=== PATIENT | male | born 1960 | race Caucasian/White ===

== ENCOUNTER → 2018-01-24 | Day surgery (SDC) | payer BC ==
[~2018-01-24] MED LIST: ALLEGRA PO; ALLOPURINOL PO; BENICAR20 MG PO; DEXAMETHASONE SOD PHOS INJ 4 MG/ML VIAL ONE; FENTANYL CITRATE/PF 100MCG/2 ML INJ ONE; FISH OIL300 MG PO; LIDOCAINE HCL 2% LOCAL INJ 5 ML SDV VIAL INJ ONE; MIDAZOLAM HCL 2 MG/2 ML VIAL ONE; MULTI-VITAMIN1 EACH PO; OMEPRAZOLE40 MG PO; ONDANSETRON HCL INJ 2 MG/ML VIAL ONE; PROPOFOL IV EMULSION 10 MG/ML 20 ML VIAL ONE; SEVOFLURANE INHAL SOLN 250 ML PEN BTL ONE; Z.0.ALLOPURINOL300 M PO
--- OUTSIDE RECORDS SUMMARY | 2018-01-24 05:53 | XMS REPORT ---
[facility] Address Unknown Phone Unavailable Care Team Providers Care Balloon Artist Name Role Phone ANTONI CHAVIS Unavailable Unavailable Problems This patient has no known problems. Allergies, Adverse Reactions, Alerts This patient has no known allergies or adverse reactions. Medications This patient has no known medications. Results Test Description Test Time Test Comments Text Results Atomic Results Result Comments MRI FOOT LEFT WO [place] [id number] Patient Name: RAHEEL GONSALES MR #: [id number] : 1960 Age/Sex: 57/M Req #: [id number] Adm Physician: Ordered by: ANTONI CHAVIS MD Report #: [id number] Location: MRI Room/Bed: Procedure: [id number] MRI/MRI FOOT LEFT WO Exam Date: 08/06/17 Exam Time: 1100 REPORT STATUS: Signed TECHNIQUE: Magnetic resonance imaging of the left foot was performed WITHOUT injected contrast. HISTORY: Pain in the lateral side of the foot COMPARISON: None available. DISCUSSION: Bone marrow signal normal. No fracture or edema. No infiltrating lesion. 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 Remainder of the joints are unremarkable. The intermetatarsal spaces are clear. No neuroma or bursitis. 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 Signed by: Dr. Ck Mclaughlin M.D. on 08/08/2017 2:25 PM Dictated By: CK MCLAUGHLIN MD 142 Transcribed By: TENISHA on 08/08/17 142 COPY TO: ANTONI CHAVIS MD
--- NOTE | 2018-01-24 10:25 | Operative Report ---
DATE OF PROCEDURE: January 24, 2018 PROCEDURES PERFORMED: 1. Esophagogastroduodenoscopy with esophageal dilatation and biopsies and polypectomy. 2. Colonoscopy with polypectomy. REFERRING PHYSICIAN: Dr. Umer Diaz INDICATIONS FOR EGD: Dysphagia to solids, heartburn, indigestion. INDICATIONS FOR COLONOSCOPY: Colorectal cancer screening. MEDICATION: Patient was done under MAC. Please see anesthesiologist note. PROCEDURE IN DETAIL: With the patient in left lateral decubitus position, flexible fiberoptic Olympus gastroscope was introduced into the esophagus under direct visualization without any difficulty. Erosions were noted in the distal esophagus. The GE junction was somewhat stenotic and nodular, biopsies were obtained, and was dilated to size 52-Austrian Crawford. The scope was then advanced with ease into the stomach, mucosa overlying the antrum and the body revealed some patchy erythema and moderate edema, and biopsies were obtained and sent to stain for H. pylori. Two minute hyperplastic-appearing polyps were removed per the cold biopsy forceps. Pylorus appeared to be of normal contour and shape. It was intubated with ease and the scope was advanced all the way to the second portion of the duodenum. The scope was then withdrawn slowly. Mucosa overlying the proximal second portion and the duodenal bulb appeared to be within normal limits. The scope was then withdrawn back into the stomach and retroflexed, and the mucosa overlying the fundus and the cardia appeared to be within normal limits. The scope was then straightened out. It was subsequently withdrawn. Patient tolerated the procedure well. ASSESSMENT: 1. Distal esophagitis, erosive. 2. Gastroesophageal junction stenotic, nodular, biopsied and dilated to size 52-Austrian Crawford. 3. Gastritis, biopsied. Biopsy sent to stain for Helicobacter pylori. 4. Gastric polyps, body, minute, hyperplastic appearing, excised partially with the cold biopsy forceps. PLAN: Follow up histology. Increase omeprazole to 40 mg 1 p.o. a.c. b.i.d. Patient was then turned around. After adequate lubrication of the anal canal, flexible fiberoptic Olympus colonoscope was inserted into the rectum with ease and advanced all the way to the cecum. Mucosa overlying the cecum appeared to be within normal limits. One polyp was snared from the ileocecal valve. Some tissue from the cecum was inadvertently removed per snare electrocautery, and polypectomy site was hemoclipped x2 prophylactically. One polyp was hot biopsied from the ascending colon. Diverticular disease was noted, pretty much was scattered throughout, but more prominent in the distal descending and the sigmoid colon. One polyp was hot biopsied from the descending colon. One nodule was hot biopsied from the sigmoid colon approximately 25 cm from the anal verge suspicious for carcinoid. Two minute polyps were hot biopsied from the distal sigmoid colon. One polyp was hot biopsied from the rectum. The scope was then retroflexed into the distal rectum and small internal hemorrhoids were noted, none of which was actively bleeding. The scope was then straightened out. It was subsequently withdrawn. Patient tolerated the procedure well. IMPRESSION: 1. Ileocecal valve polyp, snared. Polypectomy site hemoclipped x2 prophylactically. 2. Ascending colon polyp, hot biopsied. 3. Diverticulosis. 4. Descending colon polyp, hot biopsied. 5. Sigmoid colon nodule, rule out carcinoid, at approximately 25 cm from the anal verge, hot biopsied. 6. Sigmoid colon polyps, distal sigmoid, x2, hot biopsied. 7. Rectal polyp, hot biopsied. 8. Internal hemorrhoids, none actively bleeding. PLAN: Follow up histology. Initiate high-fiber low-fat diet. Initiate high-fiber supplement. Timing of followup colonoscopy pending pathology report. Job#: [id number] cc:UMER DIAZ MD
== END | disposition home or self-care (01) ==
LOC: OR 05:51
PROVIDERS: ATTEND Internal Medicine Gastroenterology
DX: Z12.11 Encounter for screening for malignant neoplasm of colon (principal); D12.4 Benign neoplasm of descending colon; D12.0 Benign neoplasm of cecum; K62.1 Rectal polyp; K31.7 Polyp of stomach and duodenum; K29.70 Gastritis, unspecified, without bleeding; K22.10 Ulcer of esophagus without bleeding; K21.9 Gastro-esophageal reflux disease without esophagitis; K22.8 Other specified diseases of esophagus; K57.30 Diverticulosis of large intestine without perforation or abscess without bleeding; K64.8 Other hemorrhoids; I10 Essential (primary) hypertension; Z01.810 Encounter for preprocedural cardiovascular examination; Z68.27 Body mass index [BMI] 27.0-27.9, adult
CPT/HCPCS: 43239; 43450; 45384; 45385; 93005; J1100; J2001; J2250; J2405; 45378

== ENCOUNTER → 2020-07-09 | Day surgery (SDC) | payer BC ==
[2020-07-06 11:41] LABS: BASOPHILS # (AUTO) 0.1 (0.0-0.1); BASOPHILS % 0.8 % (0.0-1.0); EOSINOPHILS # (AUTO) 0.3 (0.0-0.4); HEMATOCRIT 51.7 % (38.2-49.6); HEMOGLOBIN 16.7 g/dL (14.0-18.0); LYMPHOCYTES # (AUTO) 1.4 (1.0-3.2); LYMPHOCYTES % 14.6 % (18.0-39.1); MEAN CORPUSCULAR HEMOGLOBIN 28.7 pg (28-32); MEAN CORPUSCULAR HGB CONC 32.3 g/dL (31-35); MONOCYTES # (AUTO) 0.9 (0.2-0.8); MONOCYTES % 9.1 % (4.4-11.3); NEUTROPHILS # (AUTO) 6.9 (2.1-6.9); NEUTROPHILS % 71.7 % (38.7-80.0); PLATELET COUNT 266 x10e3/uL (140-360); RED BLOOD COUNT 5.81 x10e6/uL (4.3-5.7); RED CELL DISTRIBUTION WIDTH 16.1 % (11.7-14.4)
[2020-07-06 12:00] LABS: ANION GAP 12.7 mmol/L (8-16); CALCIUM 9.5 mg/dL (8.4-10.2); CREATININE, SERUM 1.32 mg/dL (0.72-1.25); POTASSIUM 4.7 mmol/L (3.5-5.1)
[~2020-07-09] MED LIST changes: +ACETAMINOPHEN/CODEINE 300MG - 30MG TAB ONE; +BUPIVACAINE 0.25% 30ML SDV ONE; +CEFAZOLIN SOD 1 GM VIAL ONE; +CEFAZOLIN SOD 1 GM/NS 50ML 50 ML IV ONE; +DIOVAN80 MG PO; +GLYCOPYRROLATE INJ 0.2 MG/ML VIAL ONE; +KETOROLAC TROMETHAMINE 30 MG/ML VIAL ONE; +NEOSTIGMINE 1 MG/ML 10ML VIAL ONE; -ONDANSETRON HCL INJ 2 MG/ML VIAL ONE; +ONDANSETRON HCL INJ 2MG/ML 2ML 2 MG/ML VIAL ONE; +ROCURONIUM BROMIDE 10 MG/ML 5ML VIAL IV ONE
--- NOTE | 2020-07-09 09:42 | Operative Report ---
DATE OF PROCEDURE: 07/09/2020 SURGEON: Cruz Coleman MD PREOPERATIVE DIAGNOSIS: Periumbilical ventral hernia. POSTOPERATIVE DIAGNOSIS: Perimbilical ventral hernia. PROCEDURE PERFORMED: Repair periumbilical ventral hernia. ROVING INSPECTOR: PINKY Hall ESTIMATED BLOOD LOSS: Minimal. DRAINS: None. COMPLICATIONS: None. INDICATIONS AND FINDINGS: A 60-year-old male admitted for repair of symptomatic umbilical hernia. INTRAOPERATIVE FINDINGS: The patient had an umbilical hernia with herniation of properitoneal fat through a small defect, Proceed ventral patch, small type, was deployed in the preperitoneal position. DESCRIPTION OF PROCEDURE: With the patient lying on the operative table in supine position after administration of general anesthesia, he was prepped and draped for repair of umbilical hernia and a semi-circular incision was made inferior to the umbilicus and carried down through the skin and subcutaneous tissue until the hernia was identified. This was dissected free from the surrounding tissues. The preperitoneal space was developed without entering the abdominal cavity and then the Proceed ventral patch was deployed in the preperitoneal space lying flat. It was secured to local tissues with 2 Ethibond sutures and was also secured to the stab to prevent any type of rotation and movement. After we ascertained that the mesh was secured in place, we irrigated the wound, infiltrated the fascia with 0.25% Marcaine with epinephrine. After the sponge and instrument counts was correct, then we closed the wound. We loosely approximated the fascia over the mesh to cover it and then the subcutaneous tissues were closed using 2-0 Vicryl and the skin was closed using 2-0 silk. A field block was given with 0.25% Marcaine with epinephrine. The patient tolerated the procedure well and taken to the recovery room in stable condition. MD NANCY Seals/DEMARCUS /[id number] MTDNatasha
[2020-07-09 09:51] VITALS: BP 144/96
== END | disposition home or self-care (01) ==
LOC: OR 06:05
PROVIDERS: ATTEND Surgery
DX: K43.9 Ventral hernia without obstruction or gangrene (principal); G47.33 Obstructive sleep apnea (adult) (pediatric); M10.9 Gout, unspecified; I10 Essential (primary) hypertension; K21.9 Gastro-esophageal reflux disease without esophagitis; Z01.810 Encounter for preprocedural cardiovascular examination; Z01.812 Encounter for preprocedural laboratory examination; Z20.828 Contact with and (suspected) exposure to other viral communicable diseases
CPT/HCPCS: 36415; 49560; 49568; 80048; 85025; 93005; C1781; J0690 ×2; J1100; J1885; J2001; J2250; J2405; J2704; J2710; J3010; U0002

== ENCOUNTER 2023-07-17 13:27 | Observation (INO) | payer BC, OTHER ==
[~2023-07-17] VITALS: Ht 182.9 cm; Wt 82.6 kg
[~2023-07-17 13:27] MED LIST changes: -ACETAMINOPHEN/CODEINE 300MG - 30MG TAB ONE; -BUPIVACAINE 0.25% 30ML SDV ONE; -CEFAZOLIN SOD 1 GM VIAL ONE; -CEFAZOLIN SOD 1 GM/NS 50ML 50 ML IV ONE; -DEXAMETHASONE SOD PHOS INJ 4 MG/ML VIAL ONE; -FENTANYL CITRATE/PF 100MCG/2 ML INJ ONE; -GLYCOPYRROLATE INJ 0.2 MG/ML VIAL ONE; -KETOROLAC TROMETHAMINE 30 MG/ML VIAL ONE; -LIDOCAINE HCL 2% LOCAL INJ 5 ML SDV VIAL INJ ONE; -MIDAZOLAM HCL 2 MG/2 ML VIAL ONE; -NEOSTIGMINE 1 MG/ML 10ML VIAL ONE; -ONDANSETRON HCL INJ 2MG/ML 2ML 2 MG/ML VIAL ONE; -PROPOFOL IV EMULSION 10 MG/ML 20 ML VIAL ONE; -ROCURONIUM BROMIDE 10 MG/ML 5ML VIAL IV ONE; -SEVOFLURANE INHAL SOLN 250 ML PEN BTL ONE
[2023-07-17] MEDS ORDERED: ONDANSETRON HCL INJ 2MG/ML 2ML 2 MG/ML VIAL IV STA (13:50)
[2023-07-17] MEDS ORDERED: GLUCAGON FOR INJ 1 MG VIAL IV ONE ×2 (14:00)
[2023-07-17 14:02] LABS: BASOPHILS # (AUTO) 0.1 (0.0-0.1); BASOPHILS % 0.3 % (0.0-1.0); EOSINOPHILS % 0.2 % (0.0-6.0); HEMATOCRIT 54.1 % (38.2-49.6); HEMOGLOBIN 17.5 g/dL (14.0-18.0); LYMPHOCYTES # (AUTO) 0.9 (1.0-3.2); LYMPHOCYTES % 5.5 % (18.0-39.1); MEAN CORPUSCULAR HGB CONC 32.3 g/dL (31-35); MEAN CORPUSCULAR VOLUME 89.7 fL (81-99); MONOCYTES # (AUTO) 0.8 (0.2-0.8); MONOCYTES % 4.7 % (4.4-11.3); NEUTROPHILS # (AUTO) 14.3 (2.1-6.9); NEUTROPHILS % 88.2 % (38.7-80.0); PLATELET COUNT 408 x10e3/uL (140-360); RED BLOOD COUNT 6.03 x10e6/uL (4.3-5.7); RED CELL DISTRIBUTION WIDTH 13.9 % (11.7-14.4); WHITE BLOOD COUNT 16.23 x10e3/uL (4.8-10.8)
[2023-07-17 14:07] LABS: INR 0.92; PROTHROMBIN TIME 12.5 seconds (11.9-14.5)
[2023-07-17 14:15] LABS: ALBUMIN 4.8 g/dL (3.5-5.0); ALBUMIN/GLOBULIN RATIO 1.2 (0.8-2.0); ANION GAP 16.7 mmol/L (8-16); BILIRUBIN,TOTAL 1.4 mg/dL (0.2-1.2); CALCIUM 10.3 mg/dL (8.4-10.2); CREATININE, SERUM 1.87 mg/dL (0.72-1.25); POTASSIUM 4.7 mmol/L (3.5-5.1); TOTAL PROTEIN 8.7 g/dL (6.5-8.1)
[2023-07-17] MEDS ORDERED: ONDANSETRON HCL INJ 2MG/ML 2ML 2 MG/ML VIAL IV PRN (15:00)
[2023-07-17] MEDS ORDERED: METOCLOPRAMIDE HCL 10 MG/2ML VIAL IV ONE (15:45)
[2023-07-17 16:15] VITALS: BP 156/92; PULSE 94; RESP 16; TEMP 97.7; O2SAT 100
[2023-07-17 16:16] VITALS: BP 156/92; PULSE 94; RESP 16; TEMP 97.7; O2SAT 100
[2023-07-17] MEDS: SODIUM CHLORIDE 0.9% 1000ML 1,000 ML IV SCH ×2 (17:23→21:05)
[2023-07-17] MEDS ORDERED: BENICAR20 MG PO (17:41)
[2023-07-17] MEDS ORDERED: SUCCINYLCHOLINE CHLORIDE 20 MG/ML 10ML VIAL ONE (17:45)
[2023-07-17] MEDS ORDERED: KETOROLAC TROMETHAMINE 30 MG/ML VIAL ONE (17:45)
[2023-07-17] MEDS ORDERED: LIDOCAINE HCL 2% LOCAL INJ 5 ML SDV VIAL INJ ONE (17:45)
[2023-07-17] MEDS ORDERED: PROPOFOL IV EMULSION 10 MG/ML 20 ML VIAL ONE (17:45)
[2023-07-17] MEDS ORDERED: SEVOFLURANE INHAL SOLN 250 ML PEN BTL ONE (17:45)
[2023-07-17] MEDS ORDERED: DEXAMETHASONE SOD PHOS INJ 4 MG/ML SDV ONE (17:45)
[2023-07-17] MEDS ORDERED: ONDANSETRON HCL INJ 2MG/ML 2ML 2 MG/ML VIAL ONE (17:45)
[2023-07-17] MEDS ORDERED: METOCLOPRAMIDE HCL 10 MG/2ML VIAL ONE (17:45)
[2023-07-17] MEDS ORDERED: LABETALOL HCL 5 MG/ML 20ML VIAL ONE (17:45)
[2023-07-17 20:00] VITALS: BP 134/89; PULSE 71; RESP 20; TEMP 97.7; O2SAT 100
[2023-07-17 21:00] VITALS: BP 134/89; PULSE 71; RESP 20; TEMP 97.7; O2SAT 100
[2023-07-17] MEDS: METOCLOPRAMIDE HCL 10 MG/2ML VIAL IV SCH (21:05)
[2023-07-18] VITALS: BP 112/76; PULSE 81; RESP 20; TEMP 98; O2SAT 99
[2023-07-18 04:00] VITALS: BP 114/73; PULSE 81; RESP 20; TEMP 98; O2SAT 98
[2023-07-18] MEDS: METOCLOPRAMIDE HCL 10 MG/2ML VIAL IV SCH ×2 (04:20→10:00)
[2023-07-18 05:57] LABS: BASOPHILS % 0.1 % (0.0-1.0); EOSINOPHILS % 0.1 % (0.0-6.0); HEMATOCRIT 42.2 % (38.2-49.6); HEMOGLOBIN 13.9 g/dL (14.0-18.0); LYMPHOCYTES # (AUTO) 0.7 (1.0-3.2); LYMPHOCYTES % 5.4 % (18.0-39.1); MEAN CORPUSCULAR HEMOGLOBIN 29.4 pg (28-32); MEAN CORPUSCULAR HGB CONC 32.9 g/dL (31-35); MEAN CORPUSCULAR VOLUME 89.2 fL (81-99); MONOCYTES # (AUTO) 0.5 (0.2-0.8); MONOCYTES % 3.7 % (4.4-11.3); NEUTROPHILS # (AUTO) 12.1 (2.1-6.9); PLATELET COUNT 279 x10e3/uL (140-360); RED BLOOD COUNT 4.73 x10e6/uL (4.3-5.7); RED CELL DISTRIBUTION WIDTH 13.7 % (11.7-14.4); WHITE BLOOD COUNT 13.43 x10e3/uL (4.8-10.8)
[2023-07-18 06:38] LABS: ALBUMIN 3.6 g/dL (3.5-5.0); ALBUMIN/GLOBULIN RATIO 1.3 (0.8-2.0); ANION GAP 14.2 mmol/L (8-16); BILIRUBIN,TOTAL 1.5 mg/dL (0.2-1.2); CALCIUM 8.4 mg/dL (8.4-10.2); CREATININE, SERUM 1.75 mg/dL (0.72-1.25); POTASSIUM 5.2 mmol/L (3.5-5.1); TOTAL PROTEIN 6.3 g/dL (6.5-8.1)
[2023-07-18] MEDS: SODIUM CHLORIDE 0.9% 1000ML 1,000 ML IV SCH (07:00)
[2023-07-18 08:00] VITALS: BP 114/73; PULSE 81; RESP 20; TEMP 98; O2SAT 98
[2023-07-18 08:39] VITALS: BP 128/83; PULSE 77; RESP 19; TEMP 97.6; O2SAT 98
[2023-07-18] MEDS ORDERED: AUGMENTIN 500-1 EACH PO (10:35)
[2023-07-18] MEDS ORDERED: ONDANSETRON ODT4 MG PO (10:37)
[2023-07-18] MEDS ORDERED: tylenol #3 PO (10:52)
[2023-07-18 11:56] VITALS: BP 123/84; PULSE 96; RESP 20; TEMP 97.9; O2SAT 97
== END 2023-07-18 12:08 | disposition home or self-care (01) ==
LOC: ER 13:36 → ERHOLD 14:59 → MED/SURG2 16:08
PROVIDERS: ADMIT Internal Medicine; ATTEND Internal Medicine
DX: T18.128A Food in esophagus causing other injury, initial encounter (principal); K22.2 Esophageal obstruction; W44.F3XA Food entering into or through a natural orifice, initial encounter; K20.90 Esophagitis, unspecified without bleeding; K44.9 Diaphragmatic hernia without obstruction or gangrene; D72.829 Elevated white blood cell count, unspecified; I12.9 Hypertensive chronic kidney disease with stage 1 through stage 4 chronic kidney disease, or unspecified chronic kidney disease; N18.30 Chronic kidney disease, stage 3 unspecified; M10.9 Gout, unspecified; Z11.52 Encounter for screening for COVID-19; Y92.009 Unspecified place in unspecified non-institutional (private) residence as the place of occurrence of the external cause; Z79.899 Other long term (current) drug therapy
CPT/HCPCS: 36415 ×2; 43239; 43450; 71045; 80053 ×2; 83735; 85025 ×2; 85610; 85730; 88305; 88342; 94760; 99284; C9113; G0378 ×2; J0330; J1100; J1610; J1885; J2001; J2405; J2704; J2765 ×2; J3490; J7030 ×2; U0002; 45379

== ENCOUNTER → 2024-04-22 | Outpatient (REF) | payer OTHER ==
[~2024-04-22] MED LIST changes: +AUGMENTIN 500-1 EACH PO; +FINASTERIDE5 MG PO; +ONDANSETRON ODT4 MG PO; +PROTONIX20 MG PO; +tylenol #3 PO
== END ==
LOC: DX 10:25
PROVIDERS: ATTEND Surgery
DX: K57.30 Diverticulosis of large intestine without perforation or abscess without bleeding (principal)
CPT/HCPCS: 74280

== ENCOUNTER 2024-07-02 08:17 | Inpatient (IN) | payer BC, OTHER ==
[2024-06-25 13:59] LABS: BASOPHILS # (AUTO) 0.1 (0.0-0.1); BASOPHILS % 0.9 % (0.0-1.0); EOSINOPHILS # (AUTO) 0.6 (0.0-0.4); EOSINOPHILS % 5.5 % (0.0-6.0); HEMATOCRIT 47.2 % (38.2-49.6); HEMOGLOBIN 14.8 g/dL (14.0-18.0); LYMPHOCYTES # (AUTO) 1.4 (1.0-3.2); LYMPHOCYTES % 13.5 % (18.0-39.1); MEAN CORPUSCULAR HEMOGLOBIN 29.8 pg (28-32); MEAN CORPUSCULAR HGB CONC 31.4 g/dL (31-35); MONOCYTES # (AUTO) 0.8 (0.2-0.8); MONOCYTES % 7.3 % (4.4-11.3); NEUTROPHILS # (AUTO) 7.6 (2.1-6.9); NEUTROPHILS % 72.5 % (38.7-80.0); PLATELET COUNT 238 x10e3/uL (140-360); RED BLOOD COUNT 4.97 x10e6/uL (4.3-5.7); RED CELL DISTRIBUTION WIDTH 12.5 % (11.7-14.4); WHITE BLOOD COUNT 10.52 x10e3/uL (4.8-10.8)
[2024-06-25 14:28] LABS: ALBUMIN 4.3 g/dL (3.5-5.0); ALBUMIN/GLOBULIN RATIO 1.3 (0.8-2.0); ANION GAP 15.3 mmol/L (8-16); BILIRUBIN,TOTAL 0.7 mg/dL (0.2-1.2); CALCIUM 10.1 mg/dL (8.4-10.2); CREATININE, SERUM 1.27 mg/dL (0.72-1.25); POTASSIUM 4.3 mmol/L (3.5-5.1); TOTAL PROTEIN 7.7 g/dL (6.5-8.1)
[~2024-07-02] VITALS: Ht 188 cm; Wt 88.0 kg
[2024-07-02] MEDS: LACTATED RINGER'S 1,000 ML ONE (08:49)
[2024-07-02] MEDS ORDERED: DEXAMETHASONE SOD PHOS INJ 4 MG/ML SDV ONE (09:32)
[2024-07-02] MEDS ORDERED: ONDANSETRON HCL INJ 2MG/ML 2ML 2 MG/ML VIAL ONE (09:32)
[2024-07-02] MEDS ORDERED: ROCURONIUM BROMIDE 1 ML IV ONE ×3 (09:32→11:49)
[2024-07-02] MEDS ORDERED: LIDOCAINE HCL 2% LOCAL INJ 5 ML SDV VIAL INJ ONE (09:32)
[2024-07-02] MEDS ORDERED: PROPOFOL IV EMULSION 10 MG/ML 20 ML VIAL ONE (09:32)
[2024-07-02] MEDS ORDERED: FENTANYL CITRATE/PF 100MCG/2 ML INJ ONE (09:35)
[2024-07-02] MEDS ORDERED: SUGAMMADEX SODIUM 200 MG/2 ML VIAL IV ONE (10:27)
[2024-07-02] MEDS ORDERED: HYDROMORPHONE 2MG/ML ONE (10:28)
[2024-07-02] MEDS ORDERED: PHENYLEPHRINE HCL 1% 10 MG/ML VIAL ONE (10:43)
[2024-07-02] MEDS ORDERED: ACETAMINOPHEN 1000 MG/100 ML 100 ML IV ONE (11:50)
[2024-07-02] MEDS ORDERED: ALBUMIN 25% 12.5GM 50ML 100 ML IV ONE (12:51)
[2024-07-02] MEDS ORDERED: BUPIVACAINE/EPI 0.5% 30ML SDV-MPF INJ ONE (13:01)
[2024-07-02] MEDS ORDERED: SODIUM CHLORIDE 0.9% INJ 10 ML VIAL ONE (13:13)
[2024-07-02] MEDS ORDERED: ACETAMINOPHEN 1000 MG/100 ML IV PRN (13:45)
[2024-07-02] MEDS ORDERED: NALOXONE HCL INJ 0.4 MG/ML AMP IV PRN (13:45)
[2024-07-02] MEDS ORDERED: ONDANSETRON HCL INJ 2MG/ML 2ML 2 MG/ML VIAL IV PRN (13:45)
[2024-07-02] MEDS: HYDROMORPHONE 0.2MG/ML-SOD CHL 30ML PCA SYRINGE IV PRN (14:25)
[2024-07-02 15:52] VITALS: BP 112/68; PULSE 73; RESP 17; TEMP 98.6; O2SAT 98
[2024-07-02] MEDS: ROPIVACAINE/EPI/CLONIDINE/KET 50 ML SYRINGE INJ ONE (16:24)
[2024-07-02 16:46] VITALS: BP 112/68; PULSE 73; RESP 17; TEMP 98.6; O2SAT 98
[2024-07-02] MEDS: SODIUM CHLORIDE 0.9% 1000ML 1,000 ML IV SCH (17:45)
[2024-07-02] MEDS: SODIUM CHLORIDE 0.9% 250ML IRRIG IR SCH (17:46)
[2024-07-02 19:35] VITALS: PULSE 95; RESP 16; O2SAT 98
[2024-07-02 20:00] VITALS: BP 107/70; PULSE 84; RESP 18; TEMP 98.1; O2SAT 99
[2024-07-02 20:45] VITALS: BP 107/70; PULSE 84; RESP 18; TEMP 98.1; O2SAT 99
[2024-07-02] MEDS: LACTATED RINGER'S 500 ML IV ONE (21:21)
[2024-07-03] VITALS (10 sets, daily range): BP systolic 107–138; BP diastolic 69–82; PULSE 75–88; RESP 16–19; TEMP 97.5–98.2; O2SAT 93–100
[2024-07-03 05:17] LABS: BASOPHILS % 0.1 % (0.0-1.0); HEMATOCRIT 34.9 % (38.2-49.6); HEMOGLOBIN 11.6 g/dL (14.0-18.0); LYMPHOCYTES # (AUTO) 0.7 (1.0-3.2); LYMPHOCYTES % 4.3 % (18.0-39.1); MEAN CORPUSCULAR HEMOGLOBIN 30.4 pg (28-32); MEAN CORPUSCULAR HGB CONC 33.2 g/dL (31-35); MEAN CORPUSCULAR VOLUME 91.6 fL (81-99); MONOCYTES # (AUTO) 1.4 (0.2-0.8); MONOCYTES % 9.3 % (4.4-11.3); NEUTROPHILS # (AUTO) 13.2 (2.1-6.9); NEUTROPHILS % 85.8 % (38.7-80.0); PLATELET COUNT 220 x10e3/uL (140-360); RED BLOOD COUNT 3.81 x10e6/uL (4.3-5.7); RED CELL DISTRIBUTION WIDTH 12.5 % (11.7-14.4); WHITE BLOOD COUNT 15.31 x10e3/uL (4.8-10.8)
[2024-07-03 05:40] LABS: ANION GAP 16.8 mmol/L (8-16); CALCIUM 8.8 mg/dL (8.4-10.2); CREATININE, SERUM 1.41 mg/dL (0.72-1.25); POTASSIUM 4.8 mmol/L (3.5-5.1)
[2024-07-03] MEDS: SODIUM CHLORIDE 0.9% 1000ML 1,000 ML IV SCH (08:25)
[2024-07-04] VITALS (9 sets, daily range): BP systolic 114–148; BP diastolic 62–94; PULSE 71–82; RESP 18–20; TEMP 97–98.2; O2SAT 93–100
[2024-07-04 05:15] LABS: BASOPHILS % 0.2 % (0.0-1.0); EOSINOPHILS # (AUTO) 0.2 (0.0-0.4); EOSINOPHILS % 1.3 % (0.0-6.0); HEMOGLOBIN 11.2 g/dL (14.0-18.0); LYMPHOCYTES # (AUTO) 1.4 (1.0-3.2); LYMPHOCYTES % 12.5 % (18.0-39.1); MEAN CORPUSCULAR HEMOGLOBIN 30.2 pg (28-32); MEAN CORPUSCULAR HGB CONC 31.1 g/dL (31-35); MONOCYTES # (AUTO) 1.1 (0.2-0.8); MONOCYTES % 10.1 % (4.4-11.3); NEUTROPHILS # (AUTO) 8.6 (2.1-6.9); NEUTROPHILS % 75.5 % (38.7-80.0); PLATELET COUNT 183 x10e3/uL (140-360); RED BLOOD COUNT 3.71 x10e6/uL (4.3-5.7); RED CELL DISTRIBUTION WIDTH 12.6 % (11.7-14.4); WHITE BLOOD COUNT 11.34 x10e3/uL (4.8-10.8)
[2024-07-04 05:37] LABS: ANION GAP 13.8 mmol/L (8-16); CALCIUM 9.2 mg/dL (8.4-10.2); CREATININE, SERUM 1.17 mg/dL (0.72-1.25); POTASSIUM 4.8 mmol/L (3.5-5.1)
[2024-07-04] MEDS: BISACODYL 10 MG SUPP PR ONE ×3 (12:11→13:18)
[2024-07-04] MEDS: BISACODYL 10 MG SUPP PR SCH (21:00)
[2024-07-05] VITALS (8 sets, daily range): BP systolic 147–161; BP diastolic 86–94; PULSE 80–105; RESP 17–20; TEMP 97.7–98.3; O2SAT 95–100
[2024-07-05 06:49] LABS: BASOPHILS # (AUTO) 0.1 (0.0-0.1); BASOPHILS % 0.6 % (0.0-1.0); EOSINOPHILS # (AUTO) 0.6 (0.0-0.4); EOSINOPHILS % 5.5 % (0.0-6.0); HEMATOCRIT 35.4 % (38.2-49.6); HEMOGLOBIN 11.5 g/dL (14.0-18.0); LYMPHOCYTES # (AUTO) 1.1 (1.0-3.2); MEAN CORPUSCULAR HEMOGLOBIN 29.9 pg (28-32); MEAN CORPUSCULAR HGB CONC 32.5 g/dL (31-35); MEAN CORPUSCULAR VOLUME 92.2 fL (81-99); MONOCYTES % 10.3 % (4.4-11.3); NEUTROPHILS # (AUTO) 7.2 (2.1-6.9); PLATELET COUNT 174 x10e3/uL (140-360); RED BLOOD COUNT 3.84 x10e6/uL (4.3-5.7); RED CELL DISTRIBUTION WIDTH 12.5 % (11.7-14.4); WHITE BLOOD COUNT 10.02 x10e3/uL (4.8-10.8)
[2024-07-05 07:14] LABS: CALCIUM 9.3 mg/dL (8.4-10.2)
[2024-07-05] MEDS ORDERED: HYDROMORPHONE 1MG/1ML INJ IV PRN (17:15)
[2024-07-05] MEDS: INDOMETHACIN 25 MG CAP PO SCH (22:28)
[2024-07-06] VITALS (10 sets, daily range): BP systolic 139–164; BP diastolic 88–95; PULSE 92–107; RESP 17–22; TEMP 97.7–101; O2SAT 94–100
[2024-07-06] MEDS: OLMESARTAN 20 MG TAB PO SCH (08:38)
[2024-07-06] MEDS: ALLOPURINOL 300 MG TAB PO SCH (08:38)
[2024-07-06] MEDS ORDERED: FINASTERIDE 5 MG TAB PO SCH (09:00)
[2024-07-06] MEDS: HYDROCODONE/APAP 7.5MG-325MG 1 EA TAB PO PRN (20:49)
[2024-07-07 03:44] VITALS: BP 146/90; PULSE 85; RESP 20; TEMP 97.6; O2SAT 99
[2024-07-07 08:00] VITALS: BP 156/94; PULSE 86; RESP 20; TEMP 97.6; O2SAT 100
[2024-07-07 08:50] VITALS: PULSE 86; RESP 20; O2SAT 97
[2024-07-07 10:05] VITALS: BP 156/94; PULSE 86; RESP 20; TEMP 97.6; O2SAT 97
[2024-07-07 11:31] VITALS: BP 152/97; PULSE 92; RESP 21; TEMP 98.3; O2SAT 100
[2024-07-07] MEDS ORDERED: EPHEDRINE SULFATE INJ 50 MG/ML VIAL ONE (12:44)
[2024-07-07 16:01] VITALS: BP 141/89; PULSE 102; RESP 22; TEMP 98.2; O2SAT 99
[2024-07-07] MEDS ORDERED: ONDANSETRON HCL 4 MG ORAL DISINTEGRATING TAB PO PRN (18:45)
[2024-07-08] MEDS ORDERED: PANTOPRAZOLE SOD 40 MG TABEC PO SCH (07:30)
== END 2024-07-07 18:30 | disposition home or self-care (01) | DRG 331 ==
LOC: OR 08:17 → PACU V 13:44 → MED/SURG 14:54
PROVIDERS: ADMIT Surgery; ATTEND Surgery
PROC: 0DTG0ZZ Resection of Left Large Intestine, Open Approach (ICD-10-PCS; principal; 2024-07-02 10:24)
DX: K57.32 Diverticulitis of large intestine without perforation or abscess without bleeding (principal); I10 Essential (primary) hypertension; M10.9 Gout, unspecified
CPT/HCPCS: 36415; 71046; 80048; 80053; 85025; 88307; 93005; 94799; 99252; J0694; J1100; J2003; J2371; J2405; J2470; J2795; J7030

== ENCOUNTER → 2025-04-03 | Day surgery (SDC) | payer BC, OTHER ==
[~2025-04-03] MED LIST changes: +FAMOTIDINE 20 MG/2 ML VIAL IV ONE; +HYOSCYAMINE SULFATE 0.5 MG/ML INJ ONE; +LIDOCAINE HCL 2% LOCAL INJ 5 ML SDV VIAL INJ ONE; +PROPOFOL IV EMULSION 10 MG/ML 20 ML VIAL ONE; +PROPOFOL IV EMULSION 50 ML IV ONE
[2025-04-03] MEDS: LACTATED RINGER'S 1,000 ML ONE (11:34)
[2025-04-03 13:44] VITALS: TEMP 97.9
[2025-04-03 14:15] VITALS: BP 116/78; PULSE 82; RESP 16; O2SAT 100
[2025-04-03 15:24] LABS: CDIFF AG QUIK CHEK NEGATIVE (NEGATIVE); CDIFF TOX QUIK CHEK NEGATIVE (NEGATIVE)
== END | disposition home or self-care (01) ==
LOC: OR 11:02
PROVIDERS: ATTEND Internal Medicine Gastroenterology
DX: Z09 Encounter for follow-up examination after completed treatment for conditions other than malignant neoplasm (principal); D12.2 Benign neoplasm of ascending colon; K57.30 Diverticulosis of large intestine without perforation or abscess without bleeding; Z98.0 Intestinal bypass and anastomosis status; K62.89 Other specified diseases of anus and rectum; R19.7 Diarrhea, unspecified; K64.8 Other hemorrhoids; Z87.19 Personal history of other diseases of the digestive system; I10 Essential (primary) hypertension; E78.5 Hyperlipidemia, unspecified; M10.9 Gout, unspecified; Z01.810 Encounter for preprocedural cardiovascular examination; Z79.899 Other long term (current) drug therapy; Z68.25 Body mass index [BMI] 25.0-25.9, adult; Z71.3 Dietary counseling and surveillance
CPT/HCPCS: 45378; 45380; 83630; 83993; 86140; 87045; 87177; 87324; 87328; 87449; 93005; J1308; J1980; J2003